=== PATIENT | female | born 1960 | race Caucasian/White ===

== ENCOUNTER 2019-02-08 07:41 | Outpatient (CLI) | payer OTHER ==
[2019-02-08 07:51] LABS: MEAN CORPUSCULAR HEMOGLOBIN 32.1 pg (28.0-34.0)
[2019-02-08 08:18] LABS: eGFR (Non-African) > 60
== END 2019-02-08 07:42 ==
LOC: LAB 07:41
PROVIDERS: ATTEND Family Medicine
DX: Z13.220 Encounter for screening for lipoid disorders (principal)
CPT/HCPCS: 36415; 80053; 80061; 85027